=== PATIENT | male | born 1945 | race African-American/Black ===

== ENCOUNTER 2020-01-11 21:17 | Emergency (ER) | payer OTHER, MEDICAID ==
[~2020-01-11] VITALS: Ht 172.7 cm; Wt 91.0 kg
[~2020-01-11 21:17] MED LIST: ASA; CARV25TA47; CEN; FURO40TA5; HYDR100T31; ISOS20TA8; K-TABS; LOSA100T32; TRIA1TAB5
[2020-01-11] MEDS ORDERED: NITROGLYCERIN 50MG PREMIX 250 ML IV ONE (21:20)
[2020-01-11] MEDS ORDERED: NITROGLYCERIN 0.4MG TABLET SL SL PRN (21:30)
[2020-01-11] MEDS ORDERED: FUROSEMIDE 40MG/4ML VIAL IV ONE (21:30)
[2020-01-11 21:42] LABS: BASOPHILS % 0.6 % (0.0-2.0); EOSINOPHILS % 1.1 % (0.0-5.0); HEMATOCRIT. 42.5 % (42.0-52.0); HEMOGLOBIN. 13.6 g/dL (14.0-18.0); LYMPHOCYTES % 27.5 % (20.0-50.0); MEAN CORPUSCULAR HEMOGLOBIN 27.8 pg (28.0-32.0); MEAN CORPUSCULAR VOLUME 87.1 fL (80.0-94.0); MEAN PLATELET VOLUME 10.9 fl (7.4-10.4); MONOCYTES % 9.6 % (2.0-8.0); NEUTROPHILS % 61.2 % (40.0-76.0); PLATELET 187 x1000/uL (130-400); RED BLOOD CELL COUNT 4.88 mill/uL (4.7-6.1); RED CELL DISTRIBUTION WIDTH 16.1 % (11.6-14.6)
[2020-01-11 21:50] LABS: CHLORIDE 106 mEq/L (98-107)
[2020-01-11] MEDS ORDERED: ASPIRIN 81MG TABLET PO NR ×2 (22:30→23:00)
[2020-01-11] MEDS ORDERED: NITROGLYCERIN OINT 1GM/INCH UDPKT TD ONE (23:00)
[2020-01-12 03:27] VITALS: BP 133/68
== END 2020-01-12 03:29 | disposition short-term general hospital (02) ==
LOC: ER 21:17 → CANBEDREQ 01-12 06:42
DX: I11.0 Hypertensive heart disease with heart failure (principal); I50.9 Heart failure, unspecified; I21.A1 Myocardial infarction type 2; I25.110 Atherosclerotic heart disease of native coronary artery with unstable angina pectoris; E11.9 Type 2 diabetes mellitus without complications; Z95.1 Presence of aortocoronary bypass graft; Z79.899 Other long term (current) drug therapy
CPT/HCPCS: 36415; 71045; 80053; 83880; 84484; 85025; 93005; 94660; 96374; 99291; J1940